=== PATIENT | female | born 1990 | race Caucasian/White ===

== ENCOUNTER 2018-10-22 04:59 | Day surgery (SDC) | payer BC, MEDICAID ==
[2018-10-22] MEDS ORDERED: Ondansetron 4 MG/2 ML SDV IVPUSH ONE (05:20)
[2018-10-22] MEDS ORDERED: Sodium Chloride 0.9% 1,000 ML IV ONE (05:20)
[2018-10-22] MEDS ORDERED: Morphine 2 MG/ML Syringe IVPUSH ONE (05:20)
[2018-10-22] MEDS ORDERED: Sodium Chloride 0.9% 10 ML Syringe FLUSH PRN (05:21)
[2018-10-22] MEDS ORDERED: Sodium Chloride 0.9% 2.5 ML Syringe FLUSH PRN (05:21)
--- NOTE | 2018-10-22 05:21 | EDM.PDOC ---
ED HPI GENERAL MEDICAL PROBLEM - General Chief Complaint: Abdominal Pain Stated Complaint: ABD PAIN Time Seen by Provider: 10/22/18 05:19 Source of Information: Reports: Patient History Limitations: Reports: No Limitations - History of Present Illness INITIAL COMMENTS - FREE TEXT/NARRATIVE: History of present illness: []Patient developed nausea, vomiting and diarrhea today she also complains of pain with urination. Patient has had sweats and chills before vomiting. Review of systems: As per history of present illness and below otherwise all systems reviewed and negative. Past medical history: As per history of present illness and as reviewed below otherwise noncontributory. Surgical history: As per history of present illness and as reviewed below otherwise noncontributory. Social history: No reported history of drug or alcohol abuse. Family history: As per history of present illness and as reviewed below otherwise noncontributory. Physical exam: General: Well developed, well nourished in NAD HEENT: Atraumatic, normocephalic, pupils reactive, negative for conjunctival pallor or scleral icterus, mucous membranes moist, throat clear, neck supple, nontender, trachea midline. Lungs: Clear to auscultation, breath sounds equal bilaterally, chest nontender. Heart: S1S2, regular, negative for clicks, rubs, or JVD. Abdomen: NABS, Soft, nondistended, diffuse tenderness no rebound or guarding. Negative for masses or hepatosplenomegaly. Negative for costovertebral tenderness. Pelvis: Stable nontender. Genitourinary: Deferred. Rectal: Deferred. Extremities: Atraumatic, negative for cords or calf pain. Neurovascular unremarkable. Neuro: Awake, alert, oriented. Cranial nerves II through XII unremarkable. Cerebellum unremarkable. Motor and sensory unremarkable throughout. Exam nonfocal. Skin:warm and dry Diagnostics: CBC, chemistry, lipase, UA, hCG, CT abdomen and pelvis Therapeutics: IV hydration, morphine, Zofran, Zosyn ED Course: Stable Dr. Coyne consulted Impression: Acute appendicitis without complication Prescriptions: Plan: Admit to surgery Definitive disposition and diagnosis as appropriate pending reevaluation and review of above. Abdomen Pain Score (Numeric/FACES): 8 - Related Data Allergies Allergy/AdvReac Type Severity Reaction Status Date / Time No Known Allergies Allergy Verified 10/22/18 05:09 Home Meds: Home Meds Levothyroxine [Synthroid] 50 mcg PO DAILY 10/22/18 [History] Thyroid,Pork [[place] Thyroid] 30 mg PO DAILY 10/22/18 [History] Past Medical History Musculoskeletal History: Reports: Back Pain, Chronic Psychiatric History: Reports: Depression Endocrine/Metabolic History: Reports: Hypothyroidism - Infectious Disease History Infectious Disease History: Reports: Chicken Pox - Past Surgical History Musculoskeletal Surgical History: Reports: Other (See Below) Other Musculoskeletal Surgeries/Procedures:: back surgery Social & Family History - Tobacco Use Smoking Status *Q: Never Smoker - Caffeine Use Caffeine Use: Reports: Coffee, Energy Drinks - Recreational Drug Use Recreational Drug Use: No ED ROS GENERAL - Review of Systems Review Of Systems: ROS reveals no pertinent complaints other than HPI. ED EXAM, GI/ABD - Physical Exam Exam: See Below (See history of present illness) Course - Vital Signs Last Recorded V/S: Last Vital Signs Temp 99.3 F 10/22/18 13:13 Pulse 73 10/22/18 14:15 Resp 13 10/22/18 14:15 BP 101/60 10/22/18 14:15 Pulse Ox 99 10/22/18 14:15 - Orders/Labs/Meds Orders: Active Orders 24 hr Category Date Time Status Patient Status [ADT] Routine ADT 10/22/18 08:00 Active Antiembolic Devices [RC] PER UNIT ROUTINE Care 10/22/18 08:00 Active Insert Urinary Catheter [OM.PC] Timed Care 10/22/18 08:00 Ordered Oxygen Therapy [RC] ASDIRECTED Care 10/22/18 08:00 Active Oxygen Therapy [RC] PRN Care 10/22/18 13:14 Active Pulse Oximetry [RC] ASDIRECTED Care 10/22/18 13:14 Active RT Incentive Spirometry [RC] Q1HWA Care 10/22/18 08:00 Active RT Incentive Spirometry [RC] Q1HWA Care 10/22/18 13:14 Active Skin Preparation [RC] .PREOP Care 10/22/18 08:00 Active Up ad Ching [RC] PER UNIT ROUTINE Care 10/22/18 13:14 Active Urinary Catheter Assessment [RC] ASDIRECTED Care 10/22/18 08:00 Active Urinary Catheter Assessment [RC] ASDIRECTED Care 10/22/18 08:00 Active Urinary Catheter Assessment [RC] ASDIRECTED Care 10/22/18 08:00 Active Vital Signs [RC] PER UNIT ROUTINE Care 10/22/18 08:00 Active Vital Signs [RC] PER UNIT ROUTINE Care 10/22/18 13:14 Active Advance Diet Instructions [DIET] Diet 10/22/18 Dinner Active Nothing Per Oral Diet [DIET] Diet 10/22/18 Breakfast Active CULTURE URINE [RM] Routine Lab 10/22/18 05:29 Ordered Lactated Ringers [Ringers, Lactated] 1,000 ml Med 10/22/18 08:00 Active IV ASDIRECTED Lactated Ringers [Ringers, Lactated] 1,000 ml Med 10/22/18 13:15 Active IV ASDIRECTED Piperacillin/Tazobactam [Piperacil-Tazobact] 3.375 gm Med 10/22/18 11:00 Active Sodium Chloride 0.9% [Normal Saline] 50 ml IV Q8H Sodium Chloride 0.9% [Saline Flush] Med 10/22/18 05:21 Active 10 ml FLUSH ASDIRECTED PRN Sodium Chloride 0.9% [Saline Flush] Med 10/22/18 05:21 Active 2.5 ml FLUSH ASDIRECTED PRN fentaNYL [Sublimaze] Med 10/22/18 12:49 Active 50 mcg IVPUSH Q5M PRN Antiembolic Hose [OM.PC] Routine Oth 10/22/18 08:00 Ordered Saline Lock Insert [OM.PC] Stat Oth 10/22/18 05:21 Ordered Resuscitation Status Routine Resus Stat 10/22/18 07:59 Ordered Medication Orders Fentanyl (Sublimaze) 50 mcg IVPUSH Q5M PRN PRN Reason: Pain (severe 7-10) Stop: 10/22/18 15:00 Lactated Ringer's (Ringers, Lactated) 1,000 mls @ 125 mls/hr IV ASDIRECTED DEBBIE Piperacillin Sod/Tazobactam (Sod 3.375 gm/ Sodium Chloride) 50 mls @ 100 mls/ hr IV Q8H DEBBIE Stop: 10/23/18 03:29 Last Admin: 10/22/18 10:15 Dose: 100 mls/hr Lactated Ringer's (Ringers, Lactated) 1,000 mls @ 125 mls/hr IV ASDIRECTED DEBBIE Sodium Chloride (Saline Flush) 10 ml FLUSH ASDIRECTED PRN PRN Reason: Keep Vein Open Last Admin: 10/22/18 07:22 Dose: 10 ml Sodium Chloride (Saline Flush) 2.5 ml FLUSH ASDIRECTED PRN PRN Reason: Keep Vein Open Last Admin: 10/22/18 07:16 Dose: 2.5 ml Labs: Laboratory Tests 10/22/18 10/22/18 10/22/18 Range/Units 05:10 05:10 05:10 WBC 22.55 H (4.0-11.0) K/uL RBC 4.63 (4.30-5.90) M/uL Hgb 14.8 (12.0-16.0) g/dL Hct 42.4 (36.0-46.0) % MCV 91.6 (80.0-98.0) fL MCH 32.0 (27.0-32.0) pg MCHC 34.9 (31.0-37.0) g/dL RDW Std Deviation 41.0 (28.0-62.0) fl RDW Coeff of Abigail 12 (11.0-15.0) % Plt Count 332 (150-400) K/uL MPV 10.50 (7.40-12.00) fL Neut % (Auto) 93.5 H (48.0-80.0) % Lymph % (Auto) 3.8 L (16.0-40.0) % [place] % (Auto) 2.6 (0.0-15.0) % Eos % (Auto) 0.0 (0.0-7.0) % Baso % (Auto) 0.1 (0.0-1.5) % Neut # (Auto) 21.1 H (1.4-5.7) K/uL Lymph # (Auto) 0.9 (0.6-2.4) K/uL [place] # (Auto) 0.6 (0.0-0.8) K/uL Eos # (Auto) 0.0 (0.0-0.7) K/uL Baso # (Auto) 0.0 (0.0-0.1) K/uL Nucleated RBC % 0.0 /100WBC Nucleated RBCs # 0 K/uL Sodium (136-145) mmol/L Potassium (3.5-5.1) mmol/L Chloride (98-107) mmol/L Carbon Dioxide (21.0-32.0) mmol/L BUN (7.0-18.0) mg/dL Creatinine (0.6-1.0) mg/dL Est Cr Clr Drug Dosing mL/min Estimated GFR (MDRD) ml/min Glucose (74-106) mg/dL Calcium (8.5-10.1) mg/dL Total Bilirubin (0.2-1.0) mg/dL AST (15-37) IU/L ALT (14-63) IU/L Alkaline Phosphatase (46-116) U/L Total Protein (6.4-8.2) g/dL Albumin (3.4-5.0) g/dL Globulin (2.6-4.0) g/dL Albumin/Globulin Ratio (0.9-1.6) Lipase (73-393) U/L Urine Color YELLOW Urine Appearance CLEAR Urine pH 6.5 (5.0-8.0) Ur Specific [place] 1.015 (1.001-1.035) Urine Protein TRACE H (NEGATIVE) mg/dL Urine Glucose (UA) NEGATIVE (NEGATIVE) mg/dL Urine Ketones TRACE H (NEGATIVE) mg/dL Urine Occult Blood NEGATIVE (NEGATIVE) Urine Nitrite NEGATIVE (NEGATIVE) Urine Bilirubin NEGATIVE (NEGATIVE) Urine Urobilinogen 0.2 (<2.0) EU/dL Ur Leukocyte Esterase NEGATIVE (NEGATIVE) Urine RBC 0-3 (0-2/HPF) Urine WBC 0-1 (0-5/HPF) Ur Squamous Epith Cells FEW Urine Bacteria 2+ H (NEGATIVE) Urine Mucus LIGHT (NONE-MOD) Urine HCG, Qual NEGATIVE (NEGATIVE) 10/22/18 Range/Units 05:10 WBC (4.0-11.0) K/uL RBC (4.30-5.90) M/uL Hgb (12.0-16.0) g/dL Hct (36.0-46.0) % MCV (80.0-98.0) fL MCH (27.0-32.0) pg MCHC (31.0-37.0) g/dL RDW Std Deviation (28.0-62.0) fl RDW Coeff of Abigail (11.0-15.0) % Plt Count (150-400) K/uL MPV (7.40-12.00) fL Neut % (Auto) (48.0-80.0) % Lymph % (Auto) (16.0-40.0) % [place] % (Auto) (0.0-15.0) % Eos % (Auto) (0.0-7.0) % Baso % (Auto) (0.0-1.5) % Neut # (Auto) (1.4-5.7) K/uL Lymph # (Auto) (0.6-2.4) K/uL [place] # (Auto) (0.0-0.8) K/uL Eos # (Auto) (0.0-0.7) K/uL Baso # (Auto) (0.0-0.1) K/uL Nucleated RBC % /100WBC Nucleated RBCs # K/uL Sodium 138 (136-145) mmol/L Potassium 4.2 (3.5-5.1) mmol/L Chloride 100 (98-107) mmol/L Carbon Dioxide 22.3 (21.0-32.0) mmol/L BUN 21 H (7.0-18.0) mg/dL Creatinine 0.9 (0.6-1.0) mg/dL Est Cr Clr Drug Dosing 76.30 mL/min Estimated GFR (MDRD) > 60.0 ml/min Glucose 156 H (74-106) mg/dL Calcium 9.4 (8.5-10.1) mg/dL Total Bilirubin 0.9 (0.2-1.0) mg/dL AST 20 (15-37) IU/L ALT 34 (14-63) IU/L Alkaline Phosphatase 57 (46-116) U/L Total Protein 7.8 (6.4-8.2) g/dL Albumin 4.5 (3.4-5.0) g/dL Globulin 3.3 (2.6-4.0) g/dL Albumin/Globulin Ratio 1.4 (0.9-1.6) Lipase 103 (73-393) U/L Urine Color Urine Appearance Urine pH (5.0-8.0) Ur Specific [place] (1.001-1.035) Urine Protein (NEGATIVE) mg/dL Urine Glucose (UA) (NEGATIVE) mg/dL Urine Ketones (NEGATIVE) mg/dL Urine Occult Blood (NEGATIVE) Urine Nitrite (NEGATIVE) Urine Bilirubin (NEGATIVE) Urine Urobilinogen (<2.0) EU/dL Ur Leukocyte Esterase (NEGATIVE) Urine RBC (0-2/HPF) Urine WBC (0-5/HPF) Ur Squamous Epith Cells Urine Bacteria (NEGATIVE) Urine Mucus (NONE-MOD) Urine HCG, Qual (NEGATIVE) Meds: Medications Generic Name Dose Route Start Last Admin Trade Name Blu PRN Reason Stop Dose Admin Fentanyl 50 mcg 10/22/18 12:49 Sublimaze IVPUSH 10/22/18 15:00 Q5M PRN Pain (severe 7-10) Lactated Ringer's 1,000 mls @ 125 mls/hr 10/22/18 08:00 Ringers, Lactated IV ASDIRECTED DEBBIE Piperacillin Sod/Tazobactam 50 mls @ 100 mls/hr 10/22/18 11:00 10/22/18 10:15 Sod 3.375 gm/ Sodium Chloride IV 10/23/18 03:29 100 mls/hr Q8H DEBBIE Administration Lactated Ringer's 1,000 mls @ 125 mls/hr 10/22/18 13:15 Ringers, Lactated IV ASDIRECTED DEBBIE Sodium Chloride 10 ml 10/22/18 05:21 10/22/18 07:22 Saline Flush FLUSH 10 ml ASDIRECTED PRN Administration Keep Vein Open Sodium Chloride 2.5 ml 10/22/18 05:21 10/22/18 07:16 Saline Flush FLUSH 2.5 ml ASDIRECTED PRN Administration Keep Vein Open Discontinued Medications Generic Name Dose Route Start Last Admin Trade Name Blu PRN Reason Stop Dose Admin Bupivacaine HCl Confirm 10/22/18 11:52 Sensorcaine-Mpf 0.5% Administered 10/22/18 11:53 Dose 20 ml .ROUTE .STK-MED ONE Cefazolin Sodium Confirm 10/22/18 11:52 Ancef Administered 10/22/18 11:53 Dose 1 gm .ROUTE .STK-MED ONE Dexamethasone Confirm 10/22/18 11:14 Dexamethasone Administered 10/22/18 11:15 Dose 20 mg .ROUTE .STK-MED ONE Fentanyl Confirm 10/22/18 11:14 Sublimaze Administered 10/22/18 11:15 Dose 250 mcg .ROUTE .STK-MED ONE Glycopyrrolate Confirm 10/22/18 12:34 Robinul Administered 10/22/18 12:35 Dose 0.4 mg .ROUTE .STK-MED ONE Sodium Chloride 1,000 mls @ 999 mls/hr 10/22/18 05:20 10/22/18 05:24 Normal Saline IV 10/22/18 06:20 999 mls/hr .Bolus ONE Administration Piperacillin Sod/Tazobactam 50 mls @ 100 mls/hr 10/22/18 06:52 10/22/18 07:16 Sod 3.375 gm/ Sodium Chloride IV 10/22/18 07:21 100 mls/hr ONETIME ONE Administration Lidocaine HCl Confirm 10/22/18 11:14 Xylocaine-Mpf 1% Administered 10/22/18 11:15 Dose 5 mls @ as directed .ROUTE .STK-MED ONE Acetaminophen Confirm 10/22/18 12:13 Ofirmev Administered 10/22/18 12:14 Dose 100 mls @ as directed IV .STK-MED ONE Iopamidol 100 ml 10/22/18 06:27 10/22/18 06:28 Isovue Multipack-370 (76%) IVPUSH 10/22/18 06:28 100 ml ONETIME ONE Administration Midazolam HCl Confirm 10/22/18 11:14 Versed 1 Mg/Ml Administered 10/22/18 11:15 Dose 2 mg .ROUTE .STK-MED ONE Morphine Sulfate 2 mg 10/22/18 05:20 10/22/18 05:24 Morphine IVPUSH 10/22/18 05:21 2 mg ONETIME ONE Administration Neostigmine Methylsulfate Confirm 10/22/18 12:34 Neostigmine Administered 10/22/18 12:35 Dose 5 mg .ROUTE .STK-MED ONE Ondansetron HCl 4 mg 10/22/18 05:20 10/22/18 05:24 Zofran IVPUSH 10/22/18 05:21 4 mg ONETIME ONE Administration Ondansetron HCl Confirm 10/22/18 11:14 Zofran Administered 10/22/18 11:15 Dose 4 mg .ROUTE .STK-MED ONE Propofol Confirm 10/22/18 11:13 Diprivan 20 Ml Administered 10/22/18 11:14 Dose 200 mg .ROUTE .STK-MED ONE Rocuronium Clarinda Confirm 10/22/18 11:14 Zemuron Administered 10/22/18 11:15 Dose 100 mg .ROUTE .STK-MED ONE Succinylcholine Chloride Confirm 10/22/18 11:14 Quelicin Administered 10/22/18 11:15 Dose 200 mg .ROUTE .STK-MED ONE Departure - Departure Time of Disposition: 08:20 Disposition: Refer to Observation Condition: Good Clinical Impression: Acute appendicitis Qualifiers: Acute appendicitis type: with localized peritonitis Appendicitis gangrene presence: without gangrene Appendicitis perforation presence: without perforation Appendicitis abscess presence: without abscess Qualified Code(s): K35.30 - Acute appendicitis with localized peritonitis, without perforation or gangrene - Discharge Information *PRESCRIPTION DRUG MONITORING PROGRAM REVIEWED*: No *COPY OF PRESCRIPTION DRUG MONITORING REPORT IN PATIENT YOUNG: No - My Orders Last 24 Hours: My Active Orders 10/22/18 05:21 Sodium Chloride 0.9% [Saline Flush] 10 ml FLUSH ASDIRECTED PRN Sodium Chloride 0.9% [Saline Flush] 2.5 ml FLUSH ASDIRECTED PRN Saline Lock Insert [OM.PC] Stat 10/22/18 05:29 CULTURE URINE [RM] Routine - Assessment/Plan Last 24 Hours: My Active Orders 10/22/18 05:21 Sodium Chloride 0.9% [Saline Flush] 10 ml FLUSH ASDIRECTED PRN Sodium Chloride 0.9% [Saline Flush] 2.5 ml FLUSH ASDIRECTED PRN Saline Lock Insert [OM.PC] Stat 10/22/18 05:29 CULTURE URINE [RM] Routine
[2018-10-22 05:54] LABS: CHLORIDE,CL 100 mmol/L (98-107); SODIUM,NA 138 mmol/L (136-145)
[2018-10-22] MEDS ORDERED: Iopamidol 755 MG/ML 500 ML Multipack Bottle IVPUSH ONE (06:27)
[2018-10-22] MEDS ORDERED: Piperacillin/Tazobactam 3.375 GM in Sodium Chloride 0.9% 50 ML IV ONE (06:52)
--- NOTE | 2018-10-22 06:55 | CT ---
INDICATION: 27 year-old female. Nausea. Abdominal pain. Elevated white blood cell count. TECHNIQUE: Contrast-enhanced abdominal pelvic CT. 100 cc nonionic Isovue-370 administered. FINDINGS: There is CT evidence for acute appendicitis without abscess formation or bowel obstruction. Please see image 96 series 301. The appendix is distended, with enhancement, and there is periappendiceal fat stranding. Appendix measures approximately 10 mm in diameter. No abscess, free air, or bowel obstruction. Clear included lung bases. The liver, spleen, pancreas, gallbladder, adrenal glands, and kidneys are negative. Normal caliber abdominal aorta and iliac arteries. Normal urinary bladder and uterus. 3 cm right ovarian cyst. 1.5 cm left ovarian cyst. The included skeleton is negative for acute fractures. Partial sacralization of L5 on the right. This is a normal anatomic variant. These findings were discussed briefly with Dr. Delvalle 6:50 a.m.. IMPRESSION : Acute uncomplicated appendicitis. Please note that all CT scans at this facility use dose modulation, iterative reconstruction, and/or weight-based dosing when appropriate to reduce radiation dose to as low as reasonably achievable. Dictated by Melvin Downing MD @ Oct 22 2018 6:47AM Signed by Dr. Melvin Downing @ Oct 22 2018 6:54AM
--- NOTE | 2018-10-22 07:57 | PCM.CONS ---
H&P History of Present Illness - General Date of Service: 10/22/18 Admit Problem/Dx: Abdominal pain Source of Information: Patient, Family History Limitations: Reports: No Limitations - History of Present Illness Initial Comments - Free Text/Narative: Patient is a 27-year-old female who presented to the emergency room earlier this morning with abdominal pain that had begun yesterday. She did try to work but was unsuccessful. She has noted anorexia, nausea, fever and chills. She has never had anything quite like this. Nobody at home is ill. Pain is primarily localized in the right lower quadrant. It does worsen with movement. Symptom Onset Date: 10/21/18 Duration of Symptoms: Reports: Day(s): Location: Reports: Abdomen Quality: Reports: Ache, Pressure Severity: Moderate Improves with: Reports: Rest Worsens with: Reports: Movement Context: Reports: Sick Contact Associated Symptoms: Reports: Fever/Chills, Nausea/Vomiting Abdomen Pain Score (Numeric/FACES): 8 - Related Data Allergies/Adverse Reactions: Allergies Allergy/AdvReac Type Severity Reaction Status Date / Time No Known Allergies Allergy Verified 10/22/18 05:09 Home Medications: Home Meds Levothyroxine [Synthroid] 50 mcg PO DAILY 10/22/18 [History] Thyroid,Pork [[place] Thyroid] 30 mg PO DAILY 10/22/18 [History] Past Medical History Musculoskeletal History: Reports: Back Pain, Chronic Psychiatric History: Reports: Depression Endocrine/Metabolic History: Reports: Hypothyroidism - Infectious Disease History Infectious Disease History: Reports: Chicken Pox - Past Surgical History Musculoskeletal Surgical History: Reports: Other (See Below) Other Musculoskeletal Surgeries/Procedures:: back surgery Social & Family History - Tobacco Use Smoking Status *Q: Never Smoker - Caffeine Use Caffeine Use: Reports: Coffee, Energy Drinks - Recreational Drug Use Recreational Drug Use: No H&P Review of Systems - Review of Systems: Review Of Systems: See Below General: Reports: Fever, Chills, Decreased Appetite HEENT: Reports: No Symptoms Pulmonary: Denies: Shortness of Breath, Wheezing Cardiovascular: Denies: Chest Pain, Palpitations Gastrointestinal: Reports: Abdominal Pain, Anorexia, Decreased Appetite, Flatus , Nausea. Denies: Diarrhea, Distension, Hematemesis, Hematochezia Genitourinary: Denies: Dysuria, Frequency, Burning, Pain Musculoskeletal: Denies: No Symptoms Skin: Reports: No Symptoms Psychiatric: Denies: Confusion, Depression Neurological: Denies: Confusion, Dizziness Hematologic/Lymphatic: Reports: No Symptoms Immunologic: Reports: No Symptoms Exam - Exam Exam: See Below - Vital Signs Vital Signs: Last Vital Signs Temp 97.5 F 10/22/18 07:23 Pulse 78 10/22/18 07:23 Resp 18 10/22/18 07:23 BP 116/72 10/22/18 07:23 Pulse Ox 97 10/22/18 07:23 Weight: 135 lb - Exam General: Alert, Oriented, Cooperative, Mild Distress HEENT: Conjunctiva Clear, EACs Clear, Pupils Equal, Pupils Reactive. No: Scleral Icterus Neck: Supple, Trachea Midline Lungs: Clear to Auscultation, Normal Respiratory Effort Cardiovascular: Regular Rate, Regular Rhythm GI/Abdominal Exam: Soft, No Distention, Rebound, Tender (rlq), Other (+ percussion tenderness in RLQ). No: Guarding, Rigid (Female) Exam: Deferred Rectal (Female) Exam: No: Deferred Back Exam: Normal Inspection, Full Range of Motion Extremities: Normal Inspection, Normal Range of Motion, Non-Tender, No Pedal Edema Peripheral Pulses: 4+: Posterior Tibial (L), Posterior Tibial (R), Dorsalis Pedis (L), Dorsalis Pedis (R) Skin: Warm, Dry, Intact. No: Wound, Incision Neurological: Cranial Nerves Intact Neuro Extensive - Mental Status: Alert, Oriented x3, Normal Mood/Affect, Normal Cognition Psychiatric: Alert, Normal Affect, Normal Mood - Patient Data Lab Results Last 24 hrs: Laboratory Results - last 24 hr 10/22/18 10/22/18 10/22/18 Range/Units 05:10 05:10 05:10 WBC 22.55 H (4.0-11.0) K/uL RBC 4.63 (4.30-5.90) M/uL Hgb 14.8 (12.0-16.0) g/dL Hct 42.4 (36.0-46.0) % MCV 91.6 (80.0-98.0) fL MCH 32.0 (27.0-32.0) pg MCHC 34.9 (31.0-37.0) g/dL RDW Std Deviation 41.0 (28.0-62.0) fl RDW Coeff of Abigail 12 (11.0-15.0) % Plt Count 332 (150-400) K/uL MPV 10.50 (7.40-12.00) fL Neut % (Auto) 93.5 H (48.0-80.0) % Lymph % (Auto) 3.8 L (16.0-40.0) % [place] % (Auto) 2.6 (0.0-15.0) % Eos % (Auto) 0.0 (0.0-7.0) % Baso % (Auto) 0.1 (0.0-1.5) % Neut # (Auto) 21.1 H (1.4-5.7) K/uL Lymph # (Auto) 0.9 (0.6-2.4) K/uL [place] # (Auto) 0.6 (0.0-0.8) K/uL Eos # (Auto) 0.0 (0.0-0.7) K/uL Baso # (Auto) 0.0 (0.0-0.1) K/uL Nucleated RBC % 0.0 /100WBC Nucleated RBCs # 0 K/uL Sodium (136-145) mmol/L Potassium (3.5-5.1) mmol/L Chloride (98-107) mmol/L Carbon Dioxide (21.0-32.0) mmol/L BUN (7.0-18.0) mg/dL Creatinine (0.6-1.0) mg/dL Est Cr Clr Drug Dosing mL/min Estimated GFR (MDRD) ml/min Glucose (74-106) mg/dL Calcium (8.5-10.1) mg/dL Total Bilirubin (0.2-1.0) mg/dL AST (15-37) IU/L ALT (14-63) IU/L Alkaline Phosphatase (46-116) U/L Total Protein (6.4-8.2) g/dL Albumin (3.4-5.0) g/dL Globulin (2.6-4.0) g/dL Albumin/Globulin Ratio (0.9-1.6) Lipase (73-393) U/L Urine Color YELLOW Urine Appearance CLEAR Urine pH 6.5 (5.0-8.0) Ur Specific [place] 1.015 (1.001-1.035) Urine Protein TRACE H (NEGATIVE) mg/dL Urine Glucose (UA) NEGATIVE (NEGATIVE) mg/dL Urine Ketones TRACE H (NEGATIVE) mg/dL Urine Occult Blood NEGATIVE (NEGATIVE) Urine Nitrite NEGATIVE (NEGATIVE) Urine Bilirubin NEGATIVE (NEGATIVE) Urine Urobilinogen 0.2 (<2.0) EU/dL Ur Leukocyte Esterase NEGATIVE (NEGATIVE) Urine RBC 0-3 (0-2/HPF) Urine WBC 0-1 (0-5/HPF) Ur Squamous Epith Cells FEW Urine Bacteria 2+ H (NEGATIVE) Urine Mucus LIGHT (NONE-MOD) Urine HCG, Qual NEGATIVE (NEGATIVE) 10/22/18 Range/Units 05:10 WBC (4.0-11.0) K/uL RBC (4.30-5.90) M/uL Hgb (12.0-16.0) g/dL Hct (36.0-46.0) % MCV (80.0-98.0) fL MCH (27.0-32.0) pg MCHC (31.0-37.0) g/dL RDW Std Deviation (28.0-62.0) fl RDW Coeff of Abigail (11.0-15.0) % Plt Count (150-400) K/uL MPV (7.40-12.00) fL Neut % (Auto) (48.0-80.0) % Lymph % (Auto) (16.0-40.0) % [place] % (Auto) (0.0-15.0) % Eos % (Auto) (0.0-7.0) % Baso % (Auto) (0.0-1.5) % Neut # (Auto) (1.4-5.7) K/uL Lymph # (Auto) (0.6-2.4) K/uL [place] # (Auto) (0.0-0.8) K/uL Eos # (Auto) (0.0-0.7) K/uL Baso # (Auto) (0.0-0.1) K/uL Nucleated RBC % /100WBC Nucleated RBCs # K/uL Sodium 138 (136-145) mmol/L Potassium 4.2 (3.5-5.1) mmol/L Chloride 100 (98-107) mmol/L Carbon Dioxide 22.3 (21.0-32.0) mmol/L BUN 21 H (7.0-18.0) mg/dL Creatinine 0.9 (0.6-1.0) mg/dL Est Cr Clr Drug Dosing 76.30 mL/min Estimated GFR (MDRD) > 60.0 ml/min Glucose 156 H (74-106) mg/dL Calcium 9.4 (8.5-10.1) mg/dL Total Bilirubin 0.9 (0.2-1.0) mg/dL AST 20 (15-37) IU/L ALT 34 (14-63) IU/L Alkaline Phosphatase 57 (46-116) U/L Total Protein 7.8 (6.4-8.2) g/dL Albumin 4.5 (3.4-5.0) g/dL Globulin 3.3 (2.6-4.0) g/dL Albumin/Globulin Ratio 1.4 (0.9-1.6) Lipase 103 (73-393) U/L Urine Color Urine Appearance Urine pH (5.0-8.0) Ur Specific [place] (1.001-1.035) Urine Protein (NEGATIVE) mg/dL Urine Glucose (UA) (NEGATIVE) mg/dL Urine Ketones (NEGATIVE) mg/dL Urine Occult Blood (NEGATIVE) Urine Nitrite (NEGATIVE) Urine Bilirubin (NEGATIVE) Urine Urobilinogen (<2.0) EU/dL Ur Leukocyte Esterase (NEGATIVE) Urine RBC (0-2/HPF) Urine WBC (0-5/HPF) Ur Squamous Epith Cells Urine Bacteria (NEGATIVE) Urine Mucus (NONE-MOD) Urine HCG, Qual (NEGATIVE) Result Diagrams: 10/22/18 05:10 10/22/18 05:10 Imaging Impressions Last 24 hrs: CT scan and report personally reviewed. Agree patient has acute, nonruptured appendicitis. Consult PN Assessment/Plan Procedures: Procedures ASSAY OF FREE TESTOSTERONE (01/30/17) NAHUN DNA DIR PROBE (01/30/17) [facility] VAG DNA DIR PROBE (01/30/17) MRI LUMBAR SPINE W/O DYE (11/28/15) TRICHOMONAS VAGIN DIR PROBE (01/30/17) X-RAY EXAM L-2 SPINE 4/>VWS (11/28/15) (1) Acute appendicitis SNOMED Code(s): 72910579 Code(s): K35.80 - UNSPECIFIED ACUTE APPENDICITIS Priority: High Current Visit: Yes Qualifiers: Acute appendicitis type: with localized peritonitis Appendicitis gangrene presence: without gangrene Appendicitis perforation presence: without perforation Appendicitis abscess presence: without abscess Qualified Code(s) : K35.30 - Acute appendicitis with localized peritonitis, without perforation or gangrene Problem List Initiated/Reviewed/Updated: Yes My Orders Last 24 Hours: Laparoscopic appendectomy, possible open appendectomy. Both operative procedures, along with the risks, including, but not limited to, bleeding, infection, pneumonia, deep venous thrombosis, pulmonary emboli, myocardial infarction, and adjacent organ injury have been reviewed with the patient who voices understanding, offers no questions and agrees to proceed.
--- NOTE | 2018-10-22 09:48 | PCM.PREANE ---
Preanesthetic Assessment - Anesthesia/Transfusion/Family Hx Anesthesia History: Prior Anesthesia Without Reaction Family History of Anesthesia Reaction: No Transfusion History: No Prior Transfusion(s) - Review of Systems General: No Symptoms Pulmonary: No Symptoms Cardiovascular: No Symptoms Gastrointestinal: Abdominal Pain, Nausea, Vomiting Neurological: No Symptoms Other: Reports: None - Physical Assessment NPO Status Date: 10/21/18 O2 Sat by Pulse Oximetry: 98 Respiratory Rate: 18 Vital Signs: Last Vital Signs Temp 98.2 F 10/22/18 09:17 Pulse 69 10/22/18 09:17 Resp 18 10/22/18 07:23 BP 103/62 10/22/18 09:17 Pulse Ox 98 10/22/18 09:17 Height: 5 ft 3 in Weight: 61.689 kg ASA Class: 2 Mental Status: Alert & Oriented x3 Dentition: Reports: Normal Dentition ROM/Head Extension: Full Lungs: Clear to Auscultation, Normal Respiratory Effort Cardiovascular: Regular Rate, Regular Rhythm - Lab Values: Laboratory Last Values WBC 22.55 K/uL (4.0-11.0) H 10/22/18 05:10 RBC 4.63 M/uL (4.30-5.90) 10/22/18 05:10 Hgb 14.8 g/dL (12.0-16.0) 10/22/18 05:10 Hct 42.4 % (36.0-46.0) 10/22/18 05:10 MCV 91.6 fL (80.0-98.0) 10/22/18 05:10 MCH 32.0 pg (27.0-32.0) 10/22/18 05:10 MCHC 34.9 g/dL (31.0-37.0) 10/22/18 05:10 RDW Std Deviation 41.0 fl (28.0-62.0) 10/22/18 05:10 RDW Coeff of Abigail 12 % (11.0-15.0) 10/22/18 05:10 Plt Count 332 K/uL (150-400) 10/22/18 05:10 MPV 10.50 fL (7.40-12.00) 10/22/18 05:10 Neut % (Auto) 93.5 % (48.0-80.0) H 10/22/18 05:10 Lymph % (Auto) 3.8 % (16.0-40.0) L 10/22/18 05:10 [place] % (Auto) 2.6 % (0.0-15.0) 10/22/18 05:10 Eos % (Auto) 0.0 % (0.0-7.0) 10/22/18 05:10 Baso % (Auto) 0.1 % (0.0-1.5) 10/22/18 05:10 Neut # (Auto) 21.1 K/uL (1.4-5.7) H 10/22/18 05:10 Lymph # (Auto) 0.9 K/uL (0.6-2.4) 10/22/18 05:10 [place] # (Auto) 0.6 K/uL (0.0-0.8) 10/22/18 05:10 Eos # (Auto) 0.0 K/uL (0.0-0.7) 10/22/18 05:10 Baso # (Auto) 0.0 K/uL (0.0-0.1) 10/22/18 05:10 Nucleated RBC % 0.0 /100WBC 10/22/18 05:10 Nucleated RBCs # 0 K/uL 10/22/18 05:10 Sodium 138 mmol/L (136-145) 10/22/18 05:10 Potassium 4.2 mmol/L (3.5-5.1) 10/22/18 05:10 Chloride 100 mmol/L (98-107) 10/22/18 05:10 Carbon Dioxide 22.3 mmol/L (21.0-32.0) 10/22/18 05:10 BUN 21 mg/dL (7.0-18.0) H 10/22/18 05:10 Creatinine 0.9 mg/dL (0.6-1.0) 10/22/18 05:10 Est Cr Clr Drug Dosing 76.30 mL/min 10/22/18 05:10 Estimated GFR (MDRD) > 60.0 ml/min 10/22/18 05:10 Glucose 156 mg/dL (74-106) H 10/22/18 05:10 Calcium 9.4 mg/dL (8.5-10.1) 10/22/18 05:10 Total Bilirubin 0.9 mg/dL (0.2-1.0) 10/22/18 05:10 AST 20 IU/L (15-37) 10/22/18 05:10 ALT 34 IU/L (14-63) 10/22/18 05:10 Alkaline Phosphatase 57 U/L (46-116) 10/22/18 05:10 Total Protein 7.8 g/dL (6.4-8.2) 10/22/18 05:10 Albumin 4.5 g/dL (3.4-5.0) 10/22/18 05:10 Globulin 3.3 g/dL (2.6-4.0) 10/22/18 05:10 Albumin/Globulin Ratio 1.4 (0.9-1.6) 10/22/18 05:10 Lipase 103 U/L (73-393) 10/22/18 05:10 Urine Color YELLOW 10/22/18 05:10 Urine Appearance CLEAR 10/22/18 05:10 Urine pH 6.5 (5.0-8.0) 10/22/18 05:10 Ur Specific [place] 1.015 (1.001-1.035) 10/22/18 05:10 Urine Protein TRACE mg/dL (NEGATIVE) H 10/22/18 05:10 Urine Glucose (UA) NEGATIVE mg/dL (NEGATIVE) 10/22/18 05:10 Urine Ketones TRACE mg/dL (NEGATIVE) H 10/22/18 05:10 Urine Occult Blood NEGATIVE (NEGATIVE) 10/22/18 05:10 Urine Nitrite NEGATIVE (NEGATIVE) 10/22/18 05:10 Urine Bilirubin NEGATIVE (NEGATIVE) 10/22/18 05:10 Urine Urobilinogen 0.2 EU/dL (<2.0) 10/22/18 05:10 Ur Leukocyte Esterase NEGATIVE (NEGATIVE) 10/22/18 05:10 Urine RBC 0-3 (0-2/HPF) 10/22/18 05:10 Urine WBC 0-1 (0-5/HPF) 10/22/18 05:10 Ur Squamous Epith Cells FEW 10/22/18 05:10 Urine Bacteria 2+ (NEGATIVE) H 10/22/18 05:10 Urine Mucus LIGHT (NONE-MOD) 10/22/18 05:10 Urine HCG, Qual NEGATIVE (NEGATIVE) 10/22/18 05:10 - Allergies Allergies/Adverse Reactions: Allergies Allergy/AdvReac Type Severity Reaction Status Date / Time No Known Allergies Allergy Verified 10/22/18 05:09 - Blood Blood Available: No - Anesthesia Plan Pre-Op Medication Ordered: None - Acknowledgements Anesthesia Type Planned: General Anesthesia Pt an Appropriate Candidate for the Planned Anesthesia: Yes Alternatives and Risks of Anesthesia Discussed w Pt/Guardian: Yes Pt/Guardian Understands and Agrees with Anesthesia Plan: Yes Additional Comments: PMH: hypothyroid- on replacement PLAN: GET PreAnesthesia Questionnaire Musculoskeletal History: Reports: Back Pain, Chronic Psychiatric History: Reports: Depression Endocrine/Metabolic History: Reports: Hypothyroidism - Infectious Disease History Infectious Disease History: Reports: Chicken Pox - Past Surgical History Musculoskeletal Surgical History: Reports: Other (See Below) Other Musculoskeletal Surgeries/Procedures:: back surgery - SUBSTANCE USE Smoking Status *Q: Never Smoker Second Hand Smoke Exposure: No Recreational Drug Use History: Yes - HOME MEDS Home Medications: Home Meds Levothyroxine [Synthroid] 50 mcg PO DAILY 10/22/18 [History] Thyroid,Pork [[place] Thyroid] 30 mg PO DAILY 10/22/18 [History] - CURRENT (IN HOUSE) MEDS Current Meds: Current Medications Lactated Ringer's (Ringers, Lactated) 1,000 mls @ 125 mls/hr IV ASDIRECTED DEBBIE Piperacillin Sod/Tazobactam (Sod 3.375 gm/ Sodium Chloride) 50 mls @ 100 mls/ hr IV Q8H [facility] Stop: 10/23/18 03:29 Sodium Chloride (Saline Flush) 10 ml FLUSH ASDIRECTED PRN PRN Reason: Keep Vein Open Last Admin: 10/22/18 07:22 Dose: 10 ml Sodium Chloride (Saline Flush) 2.5 ml FLUSH ASDIRECTED PRN PRN Reason: Keep Vein Open Last Admin: 10/22/18 07:16 Dose: 2.5 ml Discontinued Medications Sodium Chloride (Normal Saline) 1,000 mls @ 999 mls/hr IV .Bolus ONE Stop: 10/22/18 06:20 Last Admin: 10/22/18 05:24 Dose: 999 mls/hr Piperacillin Sod/Tazobactam (Sod 3.375 gm/ Sodium Chloride) 50 mls @ 100 mls/ hr IV ONETIME ONE Stop: 10/22/18 07:21 Last Admin: 10/22/18 07:16 Dose: 100 mls/hr Iopamidol (Isovue Multipack-370 (76%)) 100 ml IVPUSH ONETIME ONE Stop: 10/22/18 06:28 Last Admin: 10/22/18 06:28 Dose: 100 ml Morphine Sulfate (Morphine) 2 mg IVPUSH ONETIME ONE Stop: 10/22/18 05:21 Last Admin: 10/22/18 05:24 Dose: 2 mg Ondansetron HCl (Zofran) 4 mg IVPUSH ONETIME ONE Stop: 10/22/18 05:21 Last Admin: 10/22/18 05:24 Dose: 4 mg
[2018-10-22] MEDS: Piperacillin/Tazobactam 3.375 GM in Sodium Chloride 0.9% 50 ML IV SCH ×2 (10:15→18:01)
[2018-10-22] MEDS ORDERED: Propofol 200 MG/20 ML SDV ONE (11:13)
[2018-10-22] MEDS ORDERED: Ondansetron 4 MG/2 ML SDV ONE (11:14)
[2018-10-22] MEDS ORDERED: Rocuronium 100 MG/10 ML Syringe ONE (11:14)
[2018-10-22] MEDS ORDERED: Succinylcholine 200 MG/10 ML MDV ONE (11:14)
[2018-10-22] MEDS ORDERED: Dexamethasone 4 MG/ML 5 ML MDV ONE (11:14)
[2018-10-22] MEDS ORDERED: Midazolam 1 MG/ML 2 ML SDV ONE (11:14)
[2018-10-22] MEDS ORDERED: fentaNYL 250 MCG/5 ML SDV ONE (11:14)
[2018-10-22] MEDS ORDERED: Bupivacaine 0.5% 10 ML SDV ONE (11:52)
[2018-10-22] MEDS ORDERED: ceFAZolin 1 GM Vial ONE (11:52)
[2018-10-22] MEDS ORDERED: Glycopyrrolate 0.2 MG/ML SDV ONE (12:34)
[2018-10-22] MEDS ORDERED: Neostigmine Methylsulfate 1 MG/ML 5 ML Syringe ONE (12:34)
[2018-10-22] MEDS ORDERED: fentaNYL 100 MCG/2 ML SDV IVPUSH PRN (12:49)
[2018-10-22] MEDS ORDERED: Lactated Ringers 1,000 ML IV SCH (13:15)
--- NOTE | 2018-10-22 13:16 | PCM.OPNOTE ---
- General Post-Op/Procedure Note Date of Surgery/Procedure: 10/22/18 Operative Procedure(s): Laparoscopic appendectomy Pre Op Diagnosis: Acute abdomen Post-Op Diagnosis: acute appendicitis without perforation Anesthesia Technique: General ET Tube (ASA IIE) Primary Surgeon: Jin Coyne Fluid Replacement, Intraop: 800 Output, Urine Amount: 150 EBL in mLs: 5 Condition: Stable Free Text/Narrative:: Intake & Output 10/22/18 10/22/18 10/22/18 03:59 11:59 19:59 Intake Total 50 Balance 50 DICTATION 248688 CPT CODE 21386
--- NOTE | 2018-10-22 14:08 | PCM.POSTAN ---
POST ANESTHESIA ASSESSMENT - MENTAL STATUS Mental Status: Alert, Oriented - RESPIRATORY Respiratory Status: Respiratory Rate WNL, Airway Patent, O2 Saturation Stable - CARDIOVASCULAR CV Status: Pulse Rate WNL, Blood Pressure Stable - GASTROINTESTINAL GI Status: No Symptoms - POST OP HYDRATION Hydration Status: Adequate & Stable
[2018-10-22] MEDS ORDERED: Acetaminophen/HYDROcodone 325-5 MG Tab PO PRN (17:10)
--- NOTE | 2018-10-22 17:13 | PCM.SN ---
- Free Text/Narrative Note: Patient is feeling much better. c/o incisional pain only. No N/V. Lungs are clear to auscultation. Ht RRR. Abdomen soft and nontender. Dressings dry. Hypoactive BS. ASSESSMENT: Stable. Will advance diet. Check labs in am. Probable discharge in am.
[2018-10-22] MEDS: Morphine 10 MG/ML Syringe IVPUSH PRN (19:58)
--- NOTE | 2018-10-22 20:11 | OR ---
SURGEON: Jin Coyne M.D. DATE OF PROCEDURE: 10/22/2018 OPERATION PERFORMED: Laparoscopic appendectomy. PRIMARY SURGEON: Jin Coyne M.D. ANESTHESIA: General endotracheal. ASA CLASSIFICATION: 2E. PREOPERATIVE DIAGNOSIS: Acute abdomen. POSTOPERATIVE DIAGNOSIS: Acute nonruptured appendicitis. ESTIMATED BLOOD LOSS: 5 mL. INTRAOPERATIVE FLUID REPLACEMENT: 800 mL of crystalloid. INTRAOPERATIVE URINE OUTPUT: 150 mL. DESCRIPTION OF PROCEDURE: The patient was taken to the operating room, placed on the operating table in the supine position. Time-out was called for appropriate identification of the patient and procedure. Thigh-high TEDs and sequential compression boots were placed. Following satisfactory attainment of general endotracheal anesthesia, a Clark catheter was placed in the patient's urinary bladder. The abdomen was prepped with DuraPrep solution. Sterile drapes were applied. The skin just above the umbilicus was infiltrated with 0.5% Marcaine solution. The skin incision was made and deepened through the subcutaneous tissue obtaining hemostasis with the use of electrocautery. Veress needle was introduced into the peritoneal cavity. Saline drop test was positive. Carbon dioxide pneumoperitoneum was established with the release set at 13 cm of water. Once we had a satisfactory pneumoperitoneum, 5 mm camera port was placed in the supraumbilical incision. The patient was now positioned with her feet down and rolled to the left. Under camera vision, 12 mm suprapubic and 5 mm left lower quadrant ports were placed. Each incision had preemptively been infiltrated with 0.5% Marcaine solution. The appendix was grasped and was acutely inflamed. There was no evidence of rupture. No cloudy fluid was noted. The mesoappendix was taken down with the Harmonic scalpel. The appendix was ligated and transected using the Endo-CHEVY stapler with a blue load. The staple line was inspected and intact. The appendix was placed in an EndoCatch and removed through the 12 mm port. The right lower quadrant was irrigated with 1% Ancef solution and all fluid was aspirated. Both ovaries were visualized and I did not see any obvious ovarian cysts. The patient was now returned to a neutral position. Under camera vision, the 5 mm left lower quadrant port was removed and the 12 mm suprapubic port was removed. Finally, the supraumbilical camera and port were removed. The wounds were inspected for hemostasis and bleeding sites were electrocoagulated. The supraumbilical and suprapubic incisions were closed in 2 layers approximating the subcutaneous tissue with 3-0 Vicryl and the skin with subcuticular 4-0 Monocryl. The left lower quadrant port was closed with subcuticular 4-0 Monocryl. All incisions were Steri-Stripped and dressed with sterile Tegaderm pads. Sponge, needle, and instrument counts were all correct. Prior to emergence from anesthesia, the Clark catheter was removed. Following emergence from anesthesia and extubation, the patient was taken to recovery room in satisfactory condition. LEÓN / ROSALVA /[id number]
[2018-10-23] MEDS: Morphine 10 MG/ML Syringe IVPUSH PRN ×2 (01:00→08:34)
[2018-10-23] MEDS: Lactated Ringers 1,000 ML IV SCH ×2 (01:20→04:25)
[2018-10-23] MEDS: Piperacillin/Tazobactam 3.375 GM in Sodium Chloride 0.9% 50 ML IV SCH (04:28)
--- NOTE | 2018-10-23 07:54 | PCM48HPAN ---
Post Anesthesia Note - EVALUATION WITHIN 48HRS OF ANESTHETIC Vital Signs in Normal Range: Yes Patient Participated in Evaluation: Yes Respiratory Function Stable: Yes Airway Patent: Yes Cardiovascular Function Stable: Yes Hydration Status Stable: Yes Pain Control Satisfactory: Yes Nausea and Vomiting Control Satisfactory: Yes Mental Status Recovered: Yes Resp Rate: 14 - COMMENTS/OBSERVATIONS Free Text/Narrative:: Slept during the night and will be getting ready to go home soon.
== END 2018-10-23 11:00 | disposition home or self-care (01) ==
LOC: MW.ED 04:59 → MW.SDS 07:59 → MW.MS 08:00 → MW.SDS 10-23 11:00
PROVIDERS: ATTEND Surgery
DX: K35.30 Acute appendicitis with localized peritonitis, without perforation or gangrene (principal); E03.9 Hypothyroidism, unspecified; Z79.899 Other long term (current) drug therapy
CPT/HCPCS: 36415; 44970; 74177; 80053; 81001; 81025; 83690; 85025; 87086; 96365; 96375; 99285; A9270; J0131; J0330; J0690; J1100; J2001; J2250; J2270; J2405; J2543; J2704; J3010; J3490; J7040; J7050; J7120; Q9967; 99284

== ENCOUNTER 2024-05-23 15:58 | Inpatient (IN) | payer SELFPAY ==
[2024-05-23] MEDS ORDERED: Methylergonovine 0.2 MG/1 ML Amp IM PRN ×2 (20:23)
[2024-05-23] MEDS ORDERED: Nalbuphine 10 MG/1 ML Vial IVPUSH PRN (20:23)
[2024-05-23] MEDS ORDERED: Misoprostol 200 MCG Tab RECTAL PRN (20:23)
[2024-05-23] MEDS ORDERED: Sodium Chloride 0.9% 2.5 ML Syringe FLUSH PRN (20:23)
[2024-05-23] MEDS ORDERED: Carboprost Tromethamine 250 MCG/1 mL Vial IM PRN (20:23)
[2024-05-23] MEDS ORDERED: Lidocaine 1% 50 ML MDV INJECT PRN (20:23)
[2024-05-23] MEDS ORDERED: Misoprostol 200 MCG Tab PO PRN (20:23)
[2024-05-23] MEDS ORDERED: Water For Irrigation,Sterile 1,000 ML Container IRR PRN (20:23)
[2024-05-23] MEDS ORDERED: Sodium Chloride 0.9% 20 ML SDV IV PRN (20:23)
[2024-05-23] MEDS ORDERED: Sodium Chloride 0.9% 10 ML Syringe FLUSH PRN (20:23)
[2024-05-23] MEDS ORDERED: Ondansetron 4 MG/2 ML SDV IVPUSH PRN (20:23)
[2024-05-23] MEDS ORDERED: Simethicone 80 MG Tab.Chew PO PRN (20:23)
[2024-05-23] MEDS ORDERED: Oxytocin/0.9 % Sodium Chloride 30 UNIT/500 ML BAG IV SCH (20:30)
[2024-05-23 20:36] LABS: HEMOGLOBIN 14.1 g/dL (12.0-16.0); MEAN CORPUSCULAR HEMOGLOBIN 32.8 pg (28.0-32.0); MEAN CORPUSCULAR HGB CONC 36.2 g/dL (32.0-36.0); MEAN CORPUSCULAR VOLUME 90.7 fL (83.0-99.0); MEAN PLATELET VOLUME 12.1 fL (9.4-12.3); PLATELET COUNT,PLT 278 K/uL (150-400); WHITE BLOOD CELL COUNT,WBC 15.95 K/uL (3.9-11.3)
[2024-05-23] MEDS: Butorphanol 2 MG/ML SDV IVPUSH PRN (20:48)
[2024-05-23] MEDS: Lactated Ringers 1,000 ML IV SCH (22:08)
[2024-05-23] MEDS ORDERED: Bupivacaine 0.5% 10 ML SDV ONE (22:22)
[2024-05-23] MEDS: Ropivacaine HCl/PF 200 ML ONE (22:48)
[2024-05-23] MEDS ORDERED: ePHEDrine 50 MG/ML SDV IVPUSH PRN (22:52)
[2024-05-23] MEDS ORDERED: Bupivacaine 0.5% 10 ML SDV INJECT ONE (22:52)
[2024-05-23] MEDS ORDERED: ePHEDrine 50 MG/ML SDV IM PRN (22:52)
[2024-05-23] MEDS ORDERED: dexmedeTOMIDine HCl 200 MCG/2 ML SDV EPIDUR SCH (23:00)
[2024-05-23] MEDS ORDERED: Terbutaline 1 MG/ML SDV SUBCUT PRN (23:25)
[2024-05-23] MEDS: Oxytocin/0.9 % Sodium Chloride 30 UNIT/500 ML BAG IV SCH (23:51)
[2024-05-24] MEDS: Phenylephrine HCl In 0.9% NaCl 1 MG/10 ML Syringe ONE (00:26)
[2024-05-24] MEDS: Phenylephrine HCl In 0.9% NaCl 1 MG/10 ML Syringe IVPUSH PRN (00:40)
[2024-05-24] MEDS: Ropivacaine HCl/PF 400 MG in Premix Bag 1 BAG EPIDUR SCH (00:59)
[2024-05-24] MEDS: Lanolin 100% Cream 7 GM Tube TOP PRN (11:43)
[2024-05-24] MEDS: Ibuprofen 800 MG Tab PO PRN (12:33)
[2024-05-24] MEDS: Acetaminophen 500 MG Tab PO PRN (17:40)
[2024-05-24] MEDS: Witch Hazel Medicated Pads 40/Jar TOP PRN (20:00)
[2024-05-24] MEDS: Benzocaine/Menthol 20%-0.5% Spray 78 GM Cannister TOP PRN (20:01)
[2024-05-25 07:01] LABS: BASOPHILS ABSOLUTE AUTO 0.09 K/uL (0.00-0.20); BASOPHILS PERCENT AUTO 0.6 % (0.0-1.0); EOSINOPHILS ABSOLUTE AUTO 0.25 K/uL (0.00-0.45); EOSINOPHILS PERCENT AUTO 1.5 % (0.0-6.0); HEMATOCRIT 33.1 % (37.0-47.0); HEMOGLOBIN 11.2 g/dL (12.0-16.0); IMMATURE GRAN ABSOLUTE AUTO 0.14 K/uL (0.00-0.05); IMMATURE GRAN PERCENT AUTO 0.9 % (0.0-0.4); LYMPHOCYTES ABSOLUTE AUTO 3.04 K/uL (1.00-4.80); LYMPHOCYTES PERCENT AUTO 18.8 % (24.0-44.0); MEAN CORPUSCULAR HEMOGLOBIN 31.5 pg (28.0-32.0); MEAN CORPUSCULAR HGB CONC 33.8 g/dL (32.0-36.0); MEAN PLATELET VOLUME 11.4 fL (9.4-12.3); MONOCYTES ABSOLUTE AUTO 1.04 K/uL (0.00-0.80); MONOCYTES PERCENT AUTO 6.4 % (0.0-8.0); NEUTROPHILS PERCENT AUTO 71.8 % (41.0-71.0); PLATELET COUNT,PLT 210 K/uL (150-400); RED BLOOD CELL COUNT 3.56 M/uL (4.10-5.30); WHITE BLOOD CELL COUNT,WBC 16.16 K/uL (3.9-11.3)
[2024-05-25] MEDS: Prenatal Multivitamin with Calcium/Folic Acid/Iron Tab PO SCH (08:48)
[2024-05-25] MEDS: Ferrous Sulfate 325 MG Tab PO SCH (08:49)
[2024-05-25] MEDS: Docusate Sodium 100 MG Cap PO PRN (08:51)
== END 2024-05-25 12:50 | disposition home or self-care (01) | DRG 806 ==
LOC: MW.OBCHECK 15:58 → MW.OB 16:00 → UNDOADMOB 16:00 → MW.OB 16:00 → MW.OBCHECK 16:00 → MW.OB 05-24 15:42 → OBSVTOIN 05-24 15:43
PROVIDERS: ADMIT Obstetrics & Gynecology; ATTEND Obstetrics & Gynecology
PROC: 10D07Z6 Extraction of Products of Conception, Vacuum, Via Natural or Artificial Opening (ICD-10-PCS; principal; 2024-05-24)
PROC: 0UQMXZZ Repair Vulva, External Approach (ICD-10-PCS; 2024-05-24)
PROC: 3E0R3BZ Introduction of Anesthetic Agent into Spinal Canal, Percutaneous Approach (ICD-10-PCS; 2024-05-24)
PROC: 00HU33Z Insertion of Infusion Device into Spinal Canal, Percutaneous Approach (ICD-10-PCS; 2024-05-24)
DX: O99.02 Anemia complicating childbirth (principal); D62 Acute posthemorrhagic anemia; Z37.0 Single live birth; O48.0 Post-term pregnancy; F41.9 Anxiety disorder, unspecified; F32.A Depression, unspecified; O99.344 Other mental disorders complicating childbirth; Z3A.39 39 weeks gestation of pregnancy; O99.214 Obesity complicating childbirth; O42.02 Full-term premature rupture of membranes, onset of labor within 24 hours of rupture; O76 Abnormality in fetal heart rate and rhythm complicating labor and delivery; O71.82 Other specified trauma to perineum and vulva
CPT/HCPCS: 01967; 36415; 51702; 59025; 59409; 82947; 84112; 85025; 85027; 86592; 86850; 86900; 86901; A9270-GY; J0595; J0665; J2371; J2590; J2795; J7120